=== PATIENT | male | born 1975 | race Two or more races ===

== ENCOUNTER 2021-09-09 16:43 | Inpatient (IN) | payer OTHER ==
[~2021-09-09] VITALS: Ht 162.6 cm; Wt 69.7 kg
[2021-09-09] MEDS ORDERED: ONDANSETRON HCL 4 MG/2 ML VIAL IV ONE (17:00)
[2021-09-09] MEDS ORDERED: MORPHINE SULFATE 4 MG/ML SYR/VIAL IV ONE (17:00)
[2021-09-09] MEDS ORDERED: SODIUM CHLORIDE 0.9% 1,000 ML IVB ONE (17:00)
[2021-09-09 18:25] LABS: Basophils # (auto) 0.1 10 ^3/uL (0-0.2); Basophils % (auto) 1.4 % (0.0-2.0); Eosinophils # (auto) 0 10 ^3/uL (0-0.8); Eosinophils % (auto) 0.4 % (0.0-7.0); Hemoglobin 16.3 g/dL (13.5-17.5); Lymphocytes # (auto) 1.4 10 ^3/uL (0.4-5.4); Mean Corpuscular Hemoglobin 31.1 pg (28.0-32.0); Mean Corpuscular Hgb Conc. 35.5 g/dL (32.0-36.0); Mean Corpuscular Volume 87.6 fL (80.0-100.0); Monocytes # (auto) 0.4 10 ^3/uL (0-1.3); Neutrophils # (auto) 4.1 10 ^3/uL (1.6-8.6); Neutrophils % (auto) 68.2 % (37.0-80.0); Nucleated Red Blood Cells % 0.4 %; Red Blood Cells 5.25 10^6/uL (4.5-5.90); Red Cell Distribution Width 13.1 % (11.8-14.3)
[2021-09-09 18:28] LABS: Calcium 8.8 mg/dL (8.5-10.1); Potassium 3.7 mmol/L (3.5-5.1)
[2021-09-09 18:31] LABS: BUN/Creatinine Ratio 18.6; Bilirubin, Total 0.7 mg/dL (0.2-1.0); Total Protein 7.8 g/dL (6.4-8.2)
[2021-09-09] MEDS ORDERED: KETOROLAC TROMETH 30 MG/ML 1ML VIAL IV ONE (20:15)
[2021-09-09 20:32] LABS: Urine Bacteria NONE SEEN /hpf (None Seen); Urine Blood Negative /uL (Negative); Urine Specific Gravity 1.013 (1.001-1.035); Urine WBC <1 /hpf (0 - 3)
[2021-09-09] MEDS ORDERED: SOD CHL 0.45% 1,000 ML IV ONE (22:45)
[2021-09-09] MEDS ORDERED: ONDANSETRON HCL 4 MG/2 ML VIAL IV PRN (23:00)
[2021-09-10] MEDS ORDERED: ONDANSETRON HCL 4 MG/2 ML VIAL IV ONE (02:00)
[2021-09-10] MEDS ORDERED: MORPHINE SULFATE 4 MG/ML SYR/VIAL IV ONE (02:00)
[2021-09-10 09:00] VITALS: BP 149/85
[2021-09-10] MEDS: MORPHINE SULFATE 4 MG/ML SYR/VIAL IV PRN ×3 (09:25→21:39)
[2021-09-10] MEDS ORDERED: ENOXAPARIN SOD 40 MG/0.4 ML SYRINGE SC ONE (10:00)
[2021-09-10] MEDS ORDERED: SULFAMETHOX W/TRIMETH(800/160MG) DS TAB PO ONE (10:00)
[2021-09-10] MEDS ORDERED: TAMSULOSIN HYDROCHLORIDE 0.4 MG CAP PO ONE (10:00)
[2021-09-10 13:00] VITALS: BP 137/81
[2021-09-10] MEDS: CIPROFLOXACIN HCL 500 MG TAB PO SCH (21:39)
[2021-09-10 22:00] VITALS: BP 144/85
[2021-09-11 05:00] VITALS: BP 135/73
[2021-09-11 09:00] VITALS: BP 150/81
[2021-09-11] MEDS: CIPROFLOXACIN HCL 500 MG TAB PO SCH ×2 (10:03→21:44)
[2021-09-11] MEDS: MORPHINE SULFATE 4 MG/ML SYR/VIAL IV PRN ×2 (10:04→21:45)
[2021-09-11] MEDS ORDERED: amLODIPine BESYLATE 5 MG TAB PO ONE (12:45)
[2021-09-11] MEDS ORDERED: cloNIDine HCL 0.1 MG TAB PO PRN (12:45)
[2021-09-11 13:00] VITALS: BP 161/90
[2021-09-11 17:00] VITALS: BP 152/86
[2021-09-11 22:00] VITALS: BP 156/90
[2021-09-12 05:00] VITALS: BP 144/85
[2021-09-12 09:00] VITALS: BP 137/85
[2021-09-12] MEDS: amLODIPine BESYLATE 5 MG TAB PO SCH (10:00)
[2021-09-12] MEDS: CIPROFLOXACIN HCL 500 MG TAB PO SCH ×2 (10:00→22:16)
[2021-09-12] MEDS: MORPHINE SULFATE 4 MG/ML SYR/VIAL IV PRN (11:43)
[2021-09-12 13:00] VITALS: BP 138/87
[2021-09-12 17:00] VITALS: BP 151/96
[2021-09-12] MEDS ORDERED: MILK OF MAGNESIA 30ML SUSP PO PRN (19:00)
[2021-09-12 22:00] VITALS: BP 138/89
[2021-09-12] MEDS: GABAPENTIN 100 MG CAP PO SCH (22:17)
[2021-09-12] MEDS: DOCUSATE SOD 100 MG CAP PO SCH (22:17)
[2021-09-12] MEDS: SENNA 8.6 MG TAB PO SCH (22:18)
[2021-09-13 06:00] VITALS: BP 137/90
[2021-09-13] MEDS: DOCUSATE SOD 100 MG CAP PO SCH ×3 (06:16→21:08)
[2021-09-13 09:11] VITALS: BP 125/79
[2021-09-13] MEDS: HYDROcodone-ACET 10/325MG TAB PO PRN ×2 (12:20→18:03)
[2021-09-13] MEDS: amLODIPine BESYLATE 5 MG TAB PO SCH (12:21)
[2021-09-13] MEDS: GABAPENTIN 100 MG CAP PO SCH ×2 (12:21→21:08)
[2021-09-13] MEDS: CIPROFLOXACIN HCL 500 MG TAB PO SCH ×2 (12:22→21:08)
[2021-09-13 13:00] VITALS: BP 124/73
[2021-09-13 17:00] VITALS: BP 145/95
[2021-09-13] MEDS ORDERED: DOCU100C10 PO (17:31)
[2021-09-13] MEDS ORDERED: GAB100C PO (17:31)
[2021-09-13] MEDS ORDERED: CIP500T PO (17:31)
[2021-09-13] MEDS ORDERED: AML5T PO (17:31)
[2021-09-13] MEDS: SENNA 8.6 MG TAB PO SCH (21:08)
[2021-09-13 21:57] VITALS: BP 145/95
[2021-09-13 22:00] VITALS: BP 126/81
== END 2021-09-13 17:37 | DRG 694 ==
LOC: EDBD 16:43 → EEVIPCON 16:43 → ER 16:43 → OVERFLOW 22:38 → CENTRAL 09-10 08:22
PROVIDERS: ADMIT Internal Medicine; ATTEND Internal Medicine
DX: N20.0 Calculus of kidney (principal); N43.3 Hydrocele, unspecified; K59.00 Constipation, unspecified; I10 Essential (primary) hypertension; Z20.822 Contact with and (suspected) exposure to COVID-19
CPT/HCPCS: 36415; 74176; 76870; 80053; 81001; 82150; 83690; 85025; 87086; 87426; 96361; 96374; 96375; G0378; J1885; J2405